=== PATIENT | male | born 1960 | race Caucasian/White ===

== ENCOUNTER → 2023-05-06 | Outpatient (CLI) | payer BC ==
--- NOTE | 2023-05-06 15:13 | XR ---
Supine abdomen. DATE: 05/06/2023. COMPARISON: None available. MEDICAL HISTORY: History of right-sided kidney stones. IMPRESSION: Bowel gas pattern is nonobstructed. Several calcifications in the pelvis are most likely phleboliths. No definitive suspicious calcificat ions are seen. There is no mass effect identified.
== END | disposition home or self-care (01) ==
LOC: RADXRMAIN 12:29
PROVIDERS: ATTEND Urology
DX: N20.0 Calculus of kidney (principal); N20.1 Calculus of ureter
CPT/HCPCS: 74018

== ENCOUNTER → 2023-06-09 | Outpatient (CLI) | payer BC ==
--- NOTE | 2023-06-09 09:59 | XR ---
EXAMINATION TYPE: XR KUB DATE OF EXAM: 06/09/2023 9:45 AM CLINICAL INDICATION:Male, 62 years old with history of N20.1 CALCULUS OF URETER; COMPARISON: 05/06/2023 TECHNIQUE: One radiographic view of the abdomen was obtained. FINDINGS: The bowel gas pattern is nonspecific without dilated loops of small or large bowel. There i s no evidence for organomegaly or pneumoperitoneum. The osseous structures are intact. No abnormal calcifications are present. Fecal material and gas are demonstrated throughout the colon and rectum. IMPRESSION: No definitive kidney stones visualized evaluation limited by bowel gas.
== END | disposition home or self-care (01) ==
LOC: RADXRMAIN 09:25
PROVIDERS: ATTEND Urology
DX: N20.1 Calculus of ureter (principal)
CPT/HCPCS: 74018

== ENCOUNTER → 2023-06-30 | Outpatient (CLI) | payer BC ==
--- NOTE | 2023-06-30 09:21 | US ---
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 No nephrolithiasis is seen. No zion s are identified. The urinary bladder is anechoic. Bilateral ureteral jets are seen. IMPRESSION: No evidence for acute process. No renal calculi definitively visualized.
== END | disposition home or self-care (01) ==
LOC: RADUSWWP 08:47
PROVIDERS: ATTEND Urology
DX: N13.2 Hydronephrosis with renal and ureteral calculous obstruction (principal)
CPT/HCPCS: 76770